=== PATIENT | male | born 1975 | race African-American/Black ===

== ENCOUNTER 2016-08-26 13:37 | Emergency (ER) | payer OTHER ==
[2016-08-26 13:32] LABS: URINE SOURCE CLEAN CATCH
[2016-08-26 13:49] LABS: URINE APPEARANCE CLEAR; URINE BILIRUBIN NEG (NEG); URINE BLOOD NEG (NEG); URINE COLOR YELLOW; URINE GLUCOSE NEG (NEG); URINE KETONE NEG (NEG); URINE LEUKOCYTE ESTERASE NEG (NEG); URINE NITRATE NEG (NEG); URINE PROTEIN NEG (NEG); URINE SPECIFIC GRAVITY 1.021 (1.003-1.035)
[2016-08-26 14:01] LABS: CULTURE INDICATED? NO
[2016-08-26 14:06] LABS: INFLUENZA A NEG (NEG); INFLUENZA B NEG (NEG)
[2016-08-29 12:10] LABS: CHLAMYDIA TRACH Not Detected (Not Detected); N GONOR Not Detected (Not Detected)
== END 2016-08-26 15:06 | disposition home or self-care (01) ==
LOC: CFTX 13:37
PROVIDERS: Nurse Practitioner
DX: R30.0 Dysuria (principal); J11.1 Influenza due to unidentified influenza virus with other respiratory manifestations; E11.9 Type 2 diabetes mellitus without complications; I10 Essential (primary) hypertension
CPT/HCPCS: 81003; 82947; 87491; 87591; 87804; 99282; 99283